=== PATIENT | female | born 1985 | race Caucasian/White ===

== ENCOUNTER 2017-04-28 20:32 | Emergency (ER) | payer BC, OTHER ==
[~2017-04-28] VITALS: Ht 162.6 cm; Wt 93.3 kg
[~2017-04-28 20:32] MED LIST: ACYC-251 PO; DPKSR/500 PO; ETON1IMP2 SUBD; OXYC-57 PO; VENL150T33 PO
[2017-04-28 20:41] VITALS: Ht 162.6 cm; Wt 93.3 kg
[2017-04-29 02:05] VITALS: TEMP 37.1
[2017-04-29] MEDS ORDERED: AZITHROMYCIN 250 MG TAB PO STA (04:42)
[2017-04-29] MEDS ORDERED: CEFTRIAXONE SOD 350MG/ML 1 GM VIAL IM STA (04:42)
[2017-04-29] MEDS ORDERED: RALTEGRAVIR POTASSIUM TAB 400 MG TAB PO STA (04:44)
[2017-04-29] MEDS ORDERED: EMTRICITABINE/TENOFOVIR TAB PO STA (04:44)
[2017-04-29] MEDS ORDERED: DIPHTHERIA/TETANUS/PERTUSSIS 0.5 ML SYR/VIAL IM. ONE (04:45)
[2017-04-29] MEDS ORDERED: RALT400T PO (04:49)
[2017-04-29] MEDS ORDERED: TRVHP PO (04:49)
[2017-04-29] MEDS ORDERED: ONDA4TAB65 PO (04:49)
[2017-04-29] MEDS ORDERED: HIV POST EXPOSURE PROPHYLAXIS KIT ONE (05:22)
[2017-04-29 05:30] VITALS: BP 118/77; PULSE 101; O2SAT 97
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
--- NOTE | 2017-04-29 06:52 | DIAGNOSTIC IMAGING REPORT ---
LEFT ELBOW MIN 3 VIEWS ROUTINE HISTORY: 31-year-old female presents with left upper lobe pain without reported injury. COMPARISON: None available. TECHNIQUE: 3 views of the left elbow. FINDINGS: There is mild enthesopathic spurring at both the medial and lateral epicondyles at the expected regions of the common flexor and common extensor tendons respectively. No large elbow joint effusion. No acute fracture or dislocation. 4.3 cm radiopaque device is present within the superficial medial upper arm. There is mild soft tissue swelling of the dorsal mid forearm. IMPRESSION: 1. Mild soft tissue swelling of the mid dorsal forearm without acute fracture or dislocation. 2.4.3 cm radiopaque device is present within the superficial medial upper arm. 3. Enthesopathic spurring at both the medial and lateral epicondyles Electronically signed by: Faustino Castro 04/29/2017 6:51 AM Dictated Date/Time: 04/29/2017 6:46 AM
== END 2017-04-29 05:30 | disposition home or self-care (01) ==
LOC: C.EDB 20:33
DX: T76.21XA Adult sexual abuse, suspected, initial encounter (principal); X58.XXXA Exposure to other specified factors, initial encounter; M25.522 Pain in left elbow; S80.212A Abrasion, left knee, initial encounter; S50.812A Abrasion of left forearm, initial encounter; Z79.899 Other long term (current) drug therapy; F10.929 Alcohol use, unspecified with intoxication, unspecified; Y90.7 Blood alcohol level of 200-239 mg/100 ml; Z97.5 Presence of (intrauterine) contraceptive device; Z83.3 Family history of diabetes mellitus; Z23 Encounter for immunization

== ENCOUNTER 2017-07-13 17:50 | Emergency (ER) | payer OTHER ==
[~2017-07-13] VITALS: Ht 162.6 cm; Wt 94.4 kg
[2017-07-13 18:07] VITALS: TEMP 37; Ht 162.6 cm; Wt 94.4 kg
--- NOTE | 2017-07-13 18:38 | EMERGENCY ROOM VISIT NOTE ---
ED Visit Note First contact with patient: 18:15 CHIEF COMPLAINT: I think I have shingles HISTORY OF PRESENT ILLNESS: This 31-year-old female presents the ER with chief complaint stating that she thinks she has shingles again. The patient states that she has had shingles twice in the past and has always been on her left posterior thigh. She states she has been having some burning sensation in that area since yesterday. Today she locked and there were a few small bumps in the area. 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 REVIEW OF SYSTEMS: 6 system review was performed and was negative unless stated otherwise in history of present illness. PMH: The patient is healthy; shingles, appendectomy, rhinoplasty SOCIAL HISTORY: Patient lives alone. The patient denies tobacco use but admits to occasional alcohol use. PHYSICAL EXAM: Vital Signs: Were reviewed See nurses' notes. GENERAL: 31-year- old white female appears in no acute distress. MENTAL Status: Alert and oriented 3. LEFT THIGH: On the posterior aspect there are a few vesicles on an erythematous base on the proximal aspect. The remainder of skin is clear. DIAGNOSIS: Shingles left thigh DISCHARGE INSTRUCTIONS & TREATMENT: Tylenol and/or ibuprofen as needed for pain. Take Valtrex as directed. If symptoms worsen, follow-up with your family doctor. Problem List Medical Problems: (1) Concussion Status: Chronic Current/Historical Medications Scheduled Acyclovir (Zovirax), 800 MG PO 5 TIMES DAILY Divalproex Sodium (Depakote Etended-Release), 1,500 MG PO HS Etonogestrel (Nexplanon), 68 MG SUBD UD Venlafaxine Hcl (Venlafaxine Hcl Er), 300 MG PO DAILY Scheduled PRN Oxycodone/Acetaminophen 5MG/325MG (Percocet 5MG/325MG), 1 TABLET PO Q4H PRN for Pain Allergies Coded Allergies: Amoxicillin (Verified Allergy, Intermediate, rash, 04/28/17) Penicillins (Verified Allergy, Unknown, 04/28/17) Sulfa Drugs (Verified Allergy, Unknown, 04/28/17) Vital Signs Date Time Temp Pulse Resp B/P (MAP) Pulse Ox O2 Delivery O2 Flow Rate FiO2 07/13/17 18:07 37.0 98 16 131/94 99 Room Air Departure Information Referrals Eleazar Singh MD (PCP) Patient Instructions My [facility]
[2017-07-13] MEDS ORDERED: VALA1TAB31 PO (18:39)
[2017-07-13 19:03] VITALS: BP 124/76; PULSE 72; O2SAT 98
[2017-07-13] MEDS ORDERED: VENL150C PO (19:30)
== END 2017-07-13 19:04 | disposition home or self-care (01) ==
LOC: C.EDB 17:51 → C.EDD 19:04
DX: B02.9 Zoster without complications (principal); Z87.820 Personal history of traumatic brain injury; Z79.899 Other long term (current) drug therapy; Z88.0 Allergy status to penicillin; Z88.1 Allergy status to other antibiotic agents; Z88.2 Allergy status to sulfonamides

== ENCOUNTER 2017-09-23 08:48 | Emergency (ER) | payer OTHER ==
[~2017-09-23] VITALS: Ht 162.6 cm; Wt 95.0 kg
[~2017-09-23 08:48] MED LIST changes: -ACYC-251 PO; -DPKSR/500 PO; -OXYC-57 PO; +VENL150C PO; -VENL150T33 PO
[2017-09-23 08:52] VITALS: TEMP 37; Ht 162.6 cm; Wt 95.0 kg
[2017-09-23] MEDS ORDERED: OPTIRAY 320 IV PRN (09:30)
[2017-09-23 09:41] LABS: URINE APPEARANCE CLOUDY (CLEAR); URINE BILIRUBIN NEG (NEG); URINE COLOR YELLOW; URINE EPITHELIAL CELL AUTO >30 /lpf (0-5); URINE NITRITE NEG (NEG); UROBILINOGEN NEG (NEG); ZZUR CULT IF INDIC CLEAN CATCH YES
[2017-09-23 09:42] LABS: MANUAL MICROSCOPIC REQUIRED? NO; REVIEW REQ? YES
[2017-09-23 09:50] LABS: BASO % 0.3 %; BASO ABS # 0.03 K/uL (0-0.2); COMPLETE YES; EOS % 1.9 %; HEMATOCRIT 44.3 % (37-47); IG% 0.2 %; LYMPH % 31.7 %; LYMPH ABS # 2.78 K/uL (1.2-3.4); MEAN CELL VOLUME 89.7 fL (80-100); MEAN CORPUSCULAR HEMOGLOBIN 28.9 pg (25-34); MEAN CORPUSCULAR HGB CONC 32.3 g/dl (32-36); MEAN PLATELET VOLUME 10.3 fL (7.4-10.4); MONO % 7.9 %; PLATELET COUNT 306 K/uL (130-400); RED BLOOD COUNT 4.94 M/uL (4.2-5.4); WHITE BLOOD COUNT 8.78 K/uL (4.8-10.8)
[2017-09-23 09:54] LABS: URINE MUCUS PRESENT (NONE PRSENT)
[2017-09-23 10:07] LABS: ALT/SGPT 20 U/L (12-78); AST/SGOT 15 U/L (15-37); BLOOD UREA NITROGEN 12 mg/dl (7-18); BUN/CREATININE RATIO 12.9 (10-20); CALCIUM 9.3 mg/dl (8.5-10.1); CARBON DIOXIDE 25 mmol/L (21-32); CHLORIDE 106 mmol/L (98-107); CREATININE 0.92 mg/dl (0.60-1.20); GLUCOSE 107 mg/dl (70-99); POTASSIUM 3.6 mmol/L (3.5-5.1); SODIUM 140 mmol/L (136-145)
[2017-09-23 10:08] LABS: ALKALINE PHOSPHATASE 124 U/L (45-117)
--- NOTE | 2017-09-23 10:44 | DIAGNOSTIC IMAGING REPORT ---
ABD/PELVIS IV CONTRAST ONLY CLINICAL HISTORY: 31 years-old Female presenting with diffuse abd pain in lower abd . TECHNIQUE: Multidetector CT of the abdomen and pelvis was performed after the administration of intravenous contrast. IV contrast: And 3 mL of Optiray 320. A dose lowering technique was used consistent with the principles of ALARA (as low as reasonably achievable). COMPARISON: 09/15/2016. CT DOSE (mGy.cm): The estimated cumulative dose is 918.26 mGycm. 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 Lung bases: Minimal dependent changes likely atelectasis. Normal heart size. No pericardial or pleural effusion. Liver: Normal morphology. No liver lesion. Patent hepatic vasculature. Biliary: No intrahepatic or extrahepatic biliary ductal dilatation. Normal gallbladder. Pancreas: Normal. Spleen: Normal. Adrenal glands: Normal. Kidneys and ureters: Normal. No hydronephrosis. Bladder: Normal. Pelvic organs: Uterus and ovaries normal. Bowel: Postsurgical changes of appendectomy. No bowel obstruction. Peritoneal cavity: No free fluid or intraperitoneal gas. Lymph nodes: No enlarged lymph nodes in the abdomen or pelvis. Vasculature: Aorta and IVC patent and normal in caliber. Abdominal wall: Normal. Musculoskeletal: Normal. IMPRESSION: 1. No acute intra-abdominal pathology. Postsurgical changes of appendectomy. Electronically signed by: Satya Lobo M.D. 09/23/2017 10:43 AM Dictated Date/Time: 09/23/2017 10:39 AM
[2017-09-23 11:30] VITALS: BP 150/98; PULSE 93; O2SAT 100
--- NOTE | 2017-09-23 15:26 | EMERGENCY ROOM VISIT NOTE ---
History Report prepared by Raheem: Anh Gomez Under the Supervision of: Dr. Carl Mckeon D.O. First contact with patient: 09:05 Chief Complaint: ABDOMINAL PAIN Stated Complaint: ABDOMINAL PAIN, SWELLING Nursing Triage Summary: pt reports she has lower abd pain x a few days also has swelling in abd. went to walkin clinic checked for kidney stones told pulled muscle. pt reports she is in tune with body and it does not feel right. feels nauseated when eating , no vomiting , no diarrhea, no bm for a couple days History of Present Illness The patient is a 31 year old female who presents to the Emergency Room with complaints of persistent lower abdominal pain that began three days ago. She currently rates her discomfort as a 4/10 in severity. The patient states that she first developed severe pain on Thursday night. She states that her pain is not as severe now and describes her pain as a pressure. The patient states that she was seen at a walk-in clinic and had an x-ray done to check for kidney stones. She states that she has been constipated for the past three days. The patient additionally associates nausea with her symptoms. She states that she has a history of an appendectomy. The patient states that she typically feels very in tune with her body, but states that something feels off today. The patient denies headache, change in vision, fevers, chest pain, shortness of breath, vomiting, diarrhea, pain with urination, and melena. Source of History: patient Onset: three days ago Position: abdomen (lower) Symptom Intensity: 4/10 Quality: pressure Timing: other (persistent) Associated Symptoms: + nausea Note: Associated symptoms: constipation Review of Systems See HPI for pertinent positives & negatives. A total of 10 systems reviewed and were otherwise negative. Past Medical & Surgical Medical Problems: (1) Concussion Surgical Problems: (1) S/P appendectomy Family History Diabetes mellitus Heart disease Lung disease Social History Smoking Status: Never Smoker Alcohol Use: occasionally Drug Use: none Marital Status: single Housing Status: lives with roommate Occupation Status: employed Current/Historical Medications Scheduled Etonogestrel (Nexplanon), 68 MG SUBD UD Venlafaxine Hcl (Effexor Xr), 300 MG PO DAILY Allergies Coded Allergies: Amoxicillin (Verified Allergy, Intermediate, rash, 09/23/17) Penicillins (Verified Allergy, Unknown, 09/23/17) Sulfa Drugs (Verified Allergy, Unknown, 09/23/17) Physical Exam Vital Signs Date Time Temp Pulse Resp B/P (MAP) Pulse Ox O2 Delivery O2 Flow Rate FiO2 09/23/17 11:30 93 18 150/98 100 09/23/17 10:10 93 18 130/88 96 Room Air 09/23/17 08:52 37.0 113 18 136/86 98 Room Air Physical Exam GENERAL: Sitting up in bed, alert, well appearing, well nourished, no distress, non-toxic EYE EXAM: normal conjunctiva. OROPHARYNX: no exudate, no erythema, lips, buccal mucosa, and tongue normal and mucous membranes are moist NECK: supple, no nuchal rigidity, no adenopathy, non-tender LUNGS: Clear to auscultation. Normal chest wall mechanics HEART: no murmurs, S1 normal and S2 normal ABDOMEN: abdomen soft, non-tender, normo-active bowel sounds, no masses, no rebound or guarding. BACK: Back is symmetrical on inspection and there is no deformity, no midline tenderness, no CVA tenderness. SKIN: no rashes and no bruising UPPER EXTREMITIES: upper extremities are grossly normal. LOWER EXTREMITIES: No pitting edema. NEURO EXAM: Normal sensorium, cranial nerves II-XII grossly intact, normal speech, no gross weakness of arms, no gross weakness of legs. Medical Decision & Procedures ER Provider Diagnostic Interpretation: CT:Per my review, radiologist interpretation. ABD/PELVIS IV CONTRAST ONLY CLINICAL HISTORY: 31 years-old Female presenting with diffuse abd pain in lower abd . TECHNIQUE: Multidetector CT of the abdomen and pelvis was performed after the administration of intravenous contrast. IV contrast: And 3 mL of Optiray 320. A dose lowering technique was used consistent with the principles of ALARA (as low as reasonably achievable). COMPARISON: 09/15/2016. CT DOSE (mGy.cm): The estimated cumulative dose is 918.26 mGycm. FINDINGS: Onion Tier topogram: Unremarkable. Lung bases: Minimal dependent changes likely atelectasis. Normal heart size. No pericardial or pleural effusion. Liver: Normal morphology. No liver lesion. Patent hepatic vasculature. Biliary: No intrahepatic or extrahepatic biliary ductal dilatation. Normal gallbladder. Pancreas: Normal. Spleen: Normal. Adrenal glands: Normal. Kidneys and ureters: Normal. No hydronephrosis. Bladder: Normal. Pelvic organs: Uterus and ovaries normal. Bowel: Postsurgical changes of appendectomy. No bowel obstruction. Peritoneal cavity: No free fluid or intraperitoneal gas. Lymph nodes: No enlarged lymph nodes in the abdomen or pelvis. Vasculature: Aorta and IVC patent and normal in caliber. Abdominal wall: Normal. Musculoskeletal: Normal. IMPRESSION: 1. No acute intra-abdominal pathology. Postsurgical changes of appendectomy. Electronically signed by: Satya Lobo M.D. 09/23/2017 10:43 AM Dictated Date/Time: 09/23/2017 10:39 AM Laboratory Results 09/23/17 09:30 Red Blood Count 4.94, Mean Corpuscular Volume 89.7, Mean Corpuscular Hemoglobin 28.9, Mean Corpuscular Hemoglobin Concent 32.3, Mean Platelet Volume 10.3, Neutrophils (%) (Auto) 58.0, Lymphocytes (%) (Auto) 31.7, Monocytes (%) (Auto) 7.9, Eosinophils (%) (Auto) 1.9, Basophils (%) (Auto) 0.3, Neutrophils # (Auto) 5.09, Lymphocytes # (Auto) 2.78, Monocytes # (Auto) 0.69, Eosinophils # (Auto) 0.17, Basophils # (Auto) 0.03 09/23/17 09:30 Test 09/23/17 09:20 09/23/17 09:30 Urine Color YELLOW Urine Appearance CLOUDY (CLEAR) Urine pH 5.0 (4.5-7.5) Urine Specific [place] 1.020 (1.000-1.030) Urine Protein NEG (NEG) Urine Glucose (UA) NEG (NEG) Urine Ketones TRACE (NEG) Urine Occult Blood NEG (NEG) Urine Nitrite NEG (NEG) Urine Bilirubin NEG (NEG) Urine Urobilinogen NEG (NEG) Urine Leukocyte Esterase TRACE (NEG) Urine WBC (Auto) 5-10 /hpf (0-5) Urine RBC (Auto) 0-4 /hpf (0-4) Urine Hyaline Casts (Auto) 1-5 /lpf (0-5) Urine Epithelial Cells (Auto) >30 /lpf (0-5) Urine Bacteria (Auto) 1+ (NEG) Urine Mucus PRESENT (NONE PRSENT) Urine Test NEG (NEG) White Blood Count 8.78 K/uL (4.8-10.8) Red Blood Count 4.94 M/uL (4.2-5.4) Hemoglobin 14.3 g/dL (12.0-16.0) Hematocrit 44.3 % (37-47) Mean Corpuscular Volume 89.7 fL (80-100) Mean Corpuscular Hemoglobin 28.9 pg (25-34) Mean Corpuscular Hemoglobin Concent 32.3 g/dl (32-36) Platelet Count 306 K/uL (130-400) Mean Platelet Volume 10.3 fL (7.4-10.4) Neutrophils (%) (Auto) 58.0 % Lymphocytes (%) (Auto) 31.7 % Monocytes (%) (Auto) 7.9 % Eosinophils (%) (Auto) 1.9 % Basophils (%) (Auto) 0.3 % Neutrophils # (Auto) 5.09 K/uL (1.4-6.5) Lymphocytes # (Auto) 2.78 K/uL (1.2-3.4) Monocytes # (Auto) 0.69 K/uL (0.11-0.59) Eosinophils # (Auto) 0.17 K/uL (0-0.5) Basophils # (Auto) 0.03 K/uL (0-0.2) RDW Standard Deviation 44.9 fL (36.4-46.3) RDW Coefficient of Variation 13.7 % (11.5-14.5) Immature Granulocyte % (Auto) 0.2 % Immature Granulocyte # (Auto) 0.02 K/uL (0.00-0.02) Anion Gap 9.0 mmol/L (3-11) Est Creatinine Clear Calc Drug Dose 100.0 ml/min Estimated GFR () 96.8 Estimated GFR (Non- 83.6 BUN/Creatinine Ratio 12.9 (10-20) Calcium Level 9.3 mg/dl (8.5-10.1) Total Bilirubin 0.3 mg/dl (0.2-1) Direct Bilirubin < 0.1 mg/dl (0-0.2) Aspartate Amino Transf (AST/SGOT) 15 U/L (15-37) Alanine Aminotransferase (ALT/SGPT) 20 U/L (12-78) Alkaline Phosphatase 124 U/L (45-117) Total Protein 7.5 gm/dl (6.4-8.2) Albumin 3.7 gm/dl (3.4-5.0) Lipase 162 U/L (73-393) Laboratory results per my review. ED Course ED COURSE: Vital signs were reviewed and showed tachycardic The patients medical record was reviewed The above diagnostic studies were performed and reviewed. ED treatments and interventions as stated above. 0909: The patient was evaluated in room B3B. A complete history and physical examination was performed. 0939: I reevaluated the patient and she is feeling better. 1106: Upon reevaluation, the patient is resting comfortably.I discussed my findings with the patient and she understands and agrees with the treatment plan. Based on the patients age, coexisting illnesses, exam and lab findings the decision to treat as an outpatient was made. The patient remained stable while under my care. The patient appeared well at the time of discharge. Medical Decision Differential diagnoses includes but is not limited to gastritis, peptic ulcer disease, GERD, gallbladder disease, pancreatitis, small bowel obstruction, acute coronary syndrome, pericarditis, ischemic bowel, irritable bowel disease, irritable bowel syndrome, appendicitis, diverticulitis, malignancy, hernia, urinary tract infection, torsion, /ectopic (if female), perforation, trauma, infectious. Patient is a 31-year-old female who presents to ER for diffuse lower abdominal wall pain. Patient has no vaginal complaints. Abdominal exam is benign. CBC all BMP, LFTs, bilirubin and lipase is unremarkable. was negative. Urine was contaminated. No urinary symptoms. We'll not treat. CT abdomen and pelvis was completely negative. Patient was updated at bedside. She was discharged to follow-up with PCP. She did decline pain medications. Discussed with Pt concerning signs and symptoms to watch out for. Pt was instructed to follow up with their PCP and discussed with the patient their option to return to the ED at anytime for persistent or worsening symptoms. The appropriate anticipatory guidance and out-patient management, including indications for return to the emergency department, were explained at length to the patient and understood. Medication Reconcilliation Current Medication List: was personally reviewed by me Blood Pressure Screening Patient's blood pressure: Normal blood pressure Blood pressure disposition: Did not require urgent referral Impression Primary Impression: Abdominal wall pain Scribe Attestation The scribe's documentation has been prepared under my direction and personally reviewed by me in its entirety. I confirm that the note above accurately reflects all work, treatment, procedures, and medical decision making performed by me. Departure Information Dispostion Home / Self-Care Referrals Eleazar Singh MD (PCP) Forms HOME CARE DOCUMENTATION FORM, IMPORTANT VISIT INFORMATION, Work Instructions Patient Instructions Abdominal Pain - [facility], My [facility] Additional Instructions Please follow up with your primary care doctor with in the next 24 hours. Any worsening of your symptoms, please return to the ED immediately. This includes any fevers greater than 100.4, worsening pain, chest pain, shortness breath, persistent nausea, vomiting, unable to eat or drink, or any other concerning signs or symptoms from your standpoint.
--- NOTE | 2017-09-25 18:45 | Pharmacy Progress Note ---
ED Pharmacist Culture FollowUp Date of Service: Sep 25, 2017. Patient growing lactobacillus in urine. Given this and the lack of urinary symptoms, no further intervention is necessary at this time per Dr. Hilton, given likely contaminate.
== END 2017-09-23 11:30 | disposition home or self-care (01) ==
LOC: C.EDB 08:50
DX: R10.30 Lower abdominal pain, unspecified (principal); Z90.89 Acquired absence of other organs; Z83.3 Family history of diabetes mellitus; Z82.49 Family history of ischemic heart disease and other diseases of the circulatory system

== ENCOUNTER → 2017-11-16 | Outpatient (CLI) | payer OTHER ==
[2017-11-16 12:39] LABS: ALBUMIN 3.6 gm/dl (3.4-5.0); ALT/SGPT 29 U/L (12-78); AST/SGOT 16 U/L (15-37); BLOOD UREA NITROGEN 17 mg/dl (7-18); CARBON DIOXIDE 26 mmol/L (21-32); GLUCOSE,FASTING 102 mg/dl (70-99); POTASSIUM 3.5 mmol/L (3.5-5.1); SODIUM 138 mmol/L (136-145)
[2017-11-16 12:42] LABS: ALKALINE PHOSPHATASE 121 U/L (45-117); CHOLESTEROL 209 mg/dl (0-200); LDL CHOLESTEROL CALCULATED 127 mg/dl; TOTAL PROTEIN 7.5 gm/dl (6.4-8.2)
== END | disposition home or self-care (01) ==
LOC: C.LABPBG 08:06
PROVIDERS: ATTEND Registered Nurse Psychiatric/Mental Health
DX: Z51.81 Encounter for therapeutic drug level monitoring (principal)

== ENCOUNTER → 2018-03-17 | Outpatient (CLI) | payer OTHER | END | disposition home or self-care (01) | LOC: C.CPL 17:50 | PROVIDERS: ATTEND Registered Nurse Psychiatric/Mental Health | DX: Z51.81 Encounter for therapeutic drug level monitoring (principal) ==